=== PATIENT | male | born 1970 | race Caucasian/White ===

== ENCOUNTER 2017-09-25 10:44 | Emergency (ER) | payer OTHER ==
[~2017-09-25] VITALS: Ht 172.7 cm; Wt 95.9 kg
[2017-09-25 11:03] VITALS: BP 145/98
[2017-09-25] MEDS ORDERED: PERCOCET 5/31 TABLET PO (11:29)
== END 2017-09-25 11:54 | disposition home or self-care (01) ==
LOC: EME 10:44
DX: S46.911D Strain of unspecified muscle, fascia and tendon at shoulder and upper arm level, right arm, subsequent encounter (principal); V43.62XD Car passenger injured in collision with other type car in traffic accident, subsequent encounter
CPT/HCPCS: 99281; 99283

== ENCOUNTER 2017-10-23 09:40 | Emergency (ER) | payer OTHER ==
[~2017-10-23] VITALS: Ht 172.7 cm; Wt 96.2 kg
[~2017-10-23 09:40] MED LIST: PERCOCET 5/31 TABLET PO
[2017-10-23] MEDS ORDERED: LORTAB 5-325 M1 EACH PO (12:05)
[2017-10-23 12:29] VITALS: BP 149/97
== END 2017-10-23 12:30 | disposition home or self-care (01) ==
LOC: EME 09:40
DX: S20.212A Contusion of left front wall of thorax, initial encounter (principal); V49.50XA Passenger injured in collision with unspecified motor vehicles in traffic accident, initial encounter; Y92.410 Unspecified street and highway as the place of occurrence of the external cause; I10 Essential (primary) hypertension
CPT/HCPCS: 71046; 99281; 99284

== ENCOUNTER 2017-11-22 08:14 | Emergency (ER) | payer SELFPAY ==
[~2017-11-22] VITALS: Ht 172.7 cm; Wt 96.0 kg
[~2017-11-22 08:14] MED LIST changes: +LORTAB 5-325 M1 EACH PO
[2017-11-22] MEDS ORDERED: PERCOCET 5/31 TABLET PO (08:53)
[2017-11-22 09:25] VITALS: BP 178/95
== END 2017-11-22 09:25 | disposition home or self-care (01) ==
LOC: EME 08:14
DX: K08.89 Other specified disorders of teeth and supporting structures (principal); K04.7 Periapical abscess without sinus; S02.5XXA Fracture of tooth (traumatic), initial encounter for closed fracture; X58.XXXA Exposure to other specified factors, initial encounter
CPT/HCPCS: 99281; 99283

== ENCOUNTER 2017-12-16 11:29 | Emergency (ER) | payer SELFPAY ==
[~2017-12-16] VITALS: Ht 172.7 cm; Wt 98.0 kg
[2017-12-16] MEDS ORDERED: NORCO 5/3251 TABLET PO (13:11)
[2017-12-16 13:23] VITALS: BP 161/101
== END 2017-12-16 13:26 | disposition home or self-care (01) ==
LOC: EME 11:29
DX: M25.511 Pain in right shoulder (principal); Y04.8XXA Assault by other bodily force, initial encounter; Y07.04 Female partner, perpetrator of maltreatment and neglect
CPT/HCPCS: 99281; 99283

== ENCOUNTER 2018-01-07 06:35 | Emergency (ER) | payer SELFPAY ==
[~2018-01-07] VITALS: Ht 172.7 cm; Wt 95.1 kg
[~2018-01-07 06:35] MED LIST changes: +NORCO 5/3251 TABLET PO
[2018-01-07 06:41] VITALS: BP 121/79
[2018-01-07] MEDS ORDERED: LISINOPRIL40 MG PO (07:10)
[2018-01-07] MEDS ORDERED: IBUPROFEN800 MG PO ×2 (07:12→07:56)
[2018-01-07] MEDS ORDERED: PERCOCET 5/31 TABLET PO (07:41)
[2018-01-07] MEDS ORDERED: MOTRIN800 MG PO (07:53)
== END 2018-01-07 08:27 | disposition home or self-care (01) ==
LOC: EME 06:35
DX: S46.911A Strain of unspecified muscle, fascia and tendon at shoulder and upper arm level, right arm, initial encounter (principal); S43.101A Unspecified dislocation of right acromioclavicular joint, initial encounter; Y09 Assault by unspecified means
CPT/HCPCS: 73030; 99281; 99284